=== PATIENT | male | born 1995 | race Caucasian/White ===

== ENCOUNTER 2016-05-19 07:46 | Emergency (ER) | payer OTHER ==
[~2016-05-19] VITALS: Ht 180.3 cm; Wt 104.6 kg
[~2016-05-19 07:46] MED LIST: AMOXICILLIN500 M1 PO; ILOTYCIN1 GM LEFT EYE; LAMICTAL100 MG PO; MOXEZA3 ML BOTH EYES; NAPROSYN500 MG PO; PREDNISONE10 M1 PO; VALIUM5 MG PO; ZITHROMAX Z-PA250 MG PO
[2016-05-19] MEDS ORDERED: FLEXERIL10 MG PO (08:12)
[2016-05-19] MEDS ORDERED: NAPROSYN500 MG PO (08:12)
[2016-05-19 08:26] VITALS: BP 141/87
== END 2016-05-19 08:27 | disposition home or self-care (01) ==
LOC: EME 07:46
DX: M54.41 Lumbago with sciatica, right side (principal); X50.3XXA Overexertion from repetitive movements, initial encounter; M46.1 Sacroiliitis, not elsewhere classified; F17.200 Nicotine dependence, unspecified, uncomplicated
CPT/HCPCS: 99281; 99282

== ENCOUNTER 2016-09-24 20:08 | Emergency (ER) | payer OTHER ==
[~2016-09-24] VITALS: Ht 180.3 cm; Wt 101.5 kg
[~2016-09-24 20:08] MED LIST changes: +FLEXERIL10 MG PO
[2016-09-24 20:22] VITALS: BP 153/101
[2016-09-24] MEDS ORDERED: NAPROSYN500 MG PO (21:11)
== END 2016-09-24 21:21 | disposition home or self-care (01) ==
LOC: EME 20:08
DX: S80.12XA Contusion of left lower leg, initial encounter (principal); W22.8XXA Striking against or struck by other objects, initial encounter; F17.200 Nicotine dependence, unspecified, uncomplicated
CPT/HCPCS: 73564; 99281; 99283

== ENCOUNTER 2016-11-18 13:45 | Emergency (ER) | payer OTHER ==
[~2016-11-18] VITALS: Ht 180.3 cm; Wt 99.9 kg
[2016-11-18 14:22] VITALS: BP 137/92
[2016-11-18] MEDS ORDERED: MOTRIN800 MG PO (15:09)
[2016-11-18] MEDS ORDERED: KEFLEX500 MG PO (15:09)
== END 2016-11-18 16:08 | disposition home or self-care (01) ==
LOC: EME 13:45
DX: S61.217A Laceration without foreign body of left little finger without damage to nail, initial encounter (principal); W26.0XXA Contact with knife, initial encounter; Y93.G1 Activity, food preparation and clean up; F17.200 Nicotine dependence, unspecified, uncomplicated
CPT/HCPCS: 73140; 99281; 99284